=== PATIENT | male | born 1965 | race Caucasian/White ===

== ENCOUNTER → 2019-06-12 14:53 | Outpatient (CLI) | payer BC, SELFPAY ==
--- NOTE | 2019-06-12 14:58 | XR_ITS ---
PROCEDURE: XR CHEST 2V CLINICAL HISTORY: ACUTE BRONCHITIS COMPARISON: No exams were available for comparison FINDINGS: The cardiomediastinal silhouette and pulmonary vascularity are within normal limits. The lungs are clear without infiltrates, suspicious nodules, or pleural effusions. Postsurgical changes left glenoid region IMPRESSION: No acute findings. Dictated by: Robert Boyd MD 06/12/2019 15:39 Electronically signed by Robert Boyd MD in [place] 06/12/2019 15:39
== END ==
PROVIDERS: PCP Internal Medicine Adolescent Medicine; Visit Provider Internal Medicine Adolescent Medicine
DX: J20.9 Acute bronchitis, unspecified (principal)
CPT/HCPCS: 71046

== ENCOUNTER → 2019-10-04 17:42 | Outpatient (CLI) | payer BC, SELFPAY ==
[2019-10-06 14:04] LABS: Covid-19 Nasal PCR Sendout Lex NOT DETECTED
== END ==
PROVIDERS: Visit Provider Internal Medicine Adolescent Medicine
DX: Z20.828 Contact with and (suspected) exposure to other viral communicable diseases (principal)
CPT/HCPCS: U0004

== ENCOUNTER → 2020-09-24 11:08 | Outpatient (CLI) | payer BC, SELFPAY ==
--- NOTE | 2020-09-24 11:29 | XR_ITS ---
PROCEDURE: XR CHEST 2V CLINICAL HISTORY: PRE-SYNCOPE, OTHER FATIGUE COMPARISON: DX XR CHEST 2V from 06/12/2019 FINDINGS: The cardiomediastinal silhouette and pulmonary vascularity are within normal limits. The lungs are clear without infiltrates, suspicious nodules, or pleural effusions. Postsurgical changes left shoulder. Two metallic clips are present in the glenoid region IMPRESSION: No acute findings. Dictated by: Robert Boyd MD 09/24/2020 12:02 Robert Boyd MD in [place] 09/24/2020 12:02
[2020-09-24 11:57] LABS: Basophils % 0.7 % (0.1-2.0); Eosinophils # 0.3 K/mm3 (0.0-0.4); Eosinophils % 4.6 % (0.1-12.0); Hematocrit 48.8 % (42.0-52.0); Hemoglobin 16.7 g/dL (14.1-18.0); Lymphocytes # 1.7 K/mm3 (0.7-4.5); Lymphocytes % 27.2 % (10-50); Mean Corpuscular HGB Conc 34.2 g/dL (31.8-35.4); Mean Corpuscular Hemoglobin 32.7 pg (27.0-31.2); Mean Corpuscular Volume 95.4 fl (80-94); Mean Platelet Volume 6.6 fl (7.4-10.4); Monocytes # 0.4 K/mm3 (0.1-1.0); Monocytes % 5.9 % (1.7-9.3); Neutrophils # 3.7 K/mm3 (1.8-7.8); Neutrophils % 61.5 % (37.0-80.0); Platelet Count 276 K/mm3 (142-424); Red Blood Count 5.11 M/mm3 (4.60-6.20); Red Cell Distribution Width 13.5 % (11.5-17.5); White Blood Count 6.1 K/mm3 (4.8-10.8)
[2020-09-24 12:28] LABS: Chloride 102 mmol/L (98-107)
[2020-09-24 12:29] LABS: Potassium 5.5 mmoL/L (3.5-5.1); Sodium 141 mmol/L (136-145)
[2020-09-24 12:31] LABS: Alanine Aminotransferase 32 U/L (12-78); Alkaline Phosphatase 110 U/L (38-126); Anion Gap 15.5 mEq/L (5-15); Aspartate Amino Transferase 36 U/L (17-59); Bilirubin,Total 1.1 mg/dl (0.2-1.3); Blood Urea Nitrogen 19 mg/dl (9-20); Carbon Dioxide 29 mmol/L (22.0-30.0); Cholesterol 264 mg/dl (140-200); Estimated Glomerular Filt Rate 52 ml/min (>60); GFR (African American) 63 ML/MIN (>60); Triglycerides 299 mg/dl (30-150); VLDL Cholesterol 60 mg/dL (0-40)
[2020-09-24 12:32] LABS: Albumin/Globulin Ratio 1.7 (1.1-1.8); Calcium 10.1 mg/dl (8.4-10.2); Chol/HDL Ratio 6.1 (1-3.5); Glucose 94 mg/dl (74-100); HDL Cholesterol 43 mg/dl (40-60); Magnesium 2.2 mg/dl (1.6-2.3)
[2020-09-24 12:43] LABS: Direct LDL Cholesterol 163.91 mg/dL (100-129)
[2020-09-24 12:44] LABS: Hemoglobin A1C 5.2 % (4.0-6.0)
[2020-09-24 12:46] LABS: 25-OH Vitamin D, Total 35.5 ng/mL (30-100)
[2020-09-24 13:24] LABS: Vitamin B12 246 pg/mL (239-931)
[2020-09-24 21:13] LABS: Free Thyroxine Index 1.9 ug/dL (5.93-13.13); T4 (Thyroxine) 6.5 ug/dl (5.53-11.0); Triiodothryronine (T3) Uptake 29 % (23.5-40.5)
== END ==
PROVIDERS: Visit Provider Internal Medicine Adolescent Medicine
DX: R55 Syncope and collapse (principal); R53.81 Other malaise; R53.83 Other fatigue
CPT/HCPCS: 36415; 71046; 80053; 80061; 82306; 82607; 83036; 83735; 84436; 84443; 84479; 85025

== ENCOUNTER → 2020-12-25 15:57 | Outpatient (CLI) | payer BC, SELFPAY ==
--- NOTE | 2020-12-25 16:00 | XR_ITS ---
PROCEDURE: XR KNEE RT 3V CLINICAL INDICATION: KNEE PAIN, RT ANTERIOR COMPARISON: No exams were available for comparison FINDINGS: No fracture or dislocation. No lytic or blastic change. There is normal mineralization. Moderate to severe osteoarthritic changes are present with decrease in joint space involving all 3 compartments and osteophyte formation. Osteosclerosis is noted along the lateral compartment. There is mild concave deformity of the lateral tibial plateau. There are no previous exams available for comparison. A well-circumscribed calcific density is present superior to the patella and may be due to a loose body in the suprapatellar recess. Other findings:Possible loose body in the popliteal region at 7 mm IMPRESSION: Moderate to severe osteoarthritic changes of all 3 compartments with possible loose body in the suprapatellar recess. There may also be a loose body in the popliteal region at 7 mm. There is mild concavity with osteosclerosis of the lateral tibial plateau Dictated by: Robert Boyd MD 12/25/2020 16:19 Robert Boyd MD in [place] 12/25/2020 16:19
== END ==
PROVIDERS: PCP Internal Medicine Adolescent Medicine; Visit Provider Internal Medicine Adolescent Medicine
DX: M25.561 Pain in right knee (principal)
CPT/HCPCS: 73562

== ENCOUNTER → 2021-01-06 09:23 | Outpatient (CLI) | payer BC, SELFPAY ==
[2021-01-06 09:42] LABS: Basophils # 0.1 K/mm3 (0-0.2); Basophils % 0.8 % (0.1-2.0); Eosinophils # 0.2 K/mm3 (0.0-0.4); Eosinophils % 2.8 % (0.1-12.0); Hematocrit 47.1 % (42.0-52.0); Hemoglobin 15.6 g/dL (14.1-18.0); Lymphocytes # 1.7 K/mm3 (0.7-4.5); Lymphocytes % 21.6 % (10-50); Mean Corpuscular HGB Conc 33.1 g/dL (31.8-35.4); Mean Corpuscular Hemoglobin 33.1 pg (27.0-31.2); Mean Platelet Volume 6.7 fl (7.4-10.4); Monocytes # 0.4 K/mm3 (0.1-1.0); Monocytes % 5.1 % (1.7-9.3); Neutrophils # 5.3 K/mm3 (1.8-7.8); Neutrophils % 69.7 % (37.0-80.0); Platelet Count 325 K/mm3 (142-424); Red Blood Count 4.71 M/mm3 (4.60-6.20); Red Cell Distribution Width 12.2 % (11.5-17.5); White Blood Count 7.7 K/mm3 (4.8-10.8)
[2021-01-06 09:56] LABS: Chloride 105 mmol/L (98-107); Potassium 4.8 mmoL/L (3.5-5.1); Sodium 143 mmol/L (136-145)
[2021-01-06 09:59] LABS: Alanine Aminotransferase 35 U/L (12-78); Albumin Level 4.3 g/dl (3.5-5.0); Albumin/Globulin Ratio 1.5 (1.1-1.8); Alkaline Phosphatase 113 U/L (38-126); Anion Gap 13.8 mEq/L (5-15); Aspartate Amino Transferase 27 U/L (17-59); Bilirubin,Total 0.6 mg/dl (0.2-1.3); Blood Urea Nitrogen 16 mg/dl (9-20); Calcium 9.6 mg/dl (8.4-10.2); Carbon Dioxide 29 mmol/L (22.0-30.0); Estimated Glomerular Filt Rate 69 ml/min (>60); GFR (African American) 84 ML/MIN (>60); Globulin 2.9 g/dL (1.3-3.2); Glucose 101 mg/dl (74-100); Total Protein,Serum 7.2 g/dl (6.3-8.2)
[2021-01-06 10:05] LABS: C-Reactive Protein 32.9 mg/L (0-4)
[2021-01-06 10:44] LABS: Erythrocyte Sedimentation Rate 27 mm/hr (0-20)
--- NOTE | 2021-01-06 11:00 | CA_ITS ---
APPROVED REPORT Right Lower Extremity Venous Study for DVT. Stripper Cutter Machine: PHILIPPE Indications Lower Extremity Edema: Right Osteoarthritis, Localized redness with edema Vein Imaging CFV (R): compressive, spontaneous, phasic, augmentation SFJ (R): compressive, spontaneous, phasic, augmentation FEM (R): compressive, spontaneous, phasic, augmentation POP (R): compressive, spontaneous, phasic, augmentation DFV (R): compressive, spontaneous, phasic, augmentation PTV (R): compressive, spontaneous, phasic, augmentation GSV (R): compressive, spontaneous, phasic, augmentation SSV (R): compressive, spontaneous, phasic, augmentation Peroneals (R):compressive, spontaneous, phasic, augmentation GAS (R): compressive, spontaneous, phasic, augmentation Findings Color flow duplex demonstrates no evidence of DVT of the following right lower extremity Veins:Common Femoral Vein, Femoral Vein, Popliteal Vein, Posterior Tibial Veins, Peroneal Veins, Deep Femoral Vein. Negative for DVT. Conclusion Negative for DVT. Critical Notification Critical Value: No Physician Notified Date: 01/06/2021 Time: 11:20 Physician Name: Andrey Electronically signed by : Robert Boyd MD 01/06/2021 15:24:19
== END ==
PROVIDERS: PCP Internal Medicine Adolescent Medicine; Visit Provider Internal Medicine Adolescent Medicine
DX: R60.0 Localized edema (principal); L03.115 Cellulitis of right lower limb
CPT/HCPCS: 36415; 80053; 85025; 85651; 86140; 93971

== ENCOUNTER 2021-11-25 14:30 | Outpatient (RCR) | payer BC, SELFPAY | END 2021-11-25 14:35 | disposition home or self-care (01) | LOC: PT 14:30 | PROVIDERS: PCP Internal Medicine Adolescent Medicine; Visit Provider Orthopaedic Surgery Adult Reconstructive Orthopaedic Surgery | DX: M17.0 Bilateral primary osteoarthritis of knee (principal) | CPT/HCPCS: 97010; 97014; 97016; 97110; 97140; 97163; 97164; G0283 ==

== ENCOUNTER → 2021-11-29 11:59 | Outpatient (CLI) | payer BC, SELFPAY ==
[2021-11-29 12:51] LABS: Basophils # 0.1 K/mm3 (0-0.2); Basophils % 1.6 % (0.1-2.0); Eosinophils # 0.3 K/mm3 (0.0-0.4); Eosinophils % 4.5 % (0.1-12.0); Hemoglobin 14.4 g/dL (14.1-18.0); Lymphocytes # 1.2 K/mm3 (0.7-4.5); Lymphocytes % 21.7 % (10-50); Mean Corpuscular HGB Conc 32.1 g/dL (31.8-35.4); Mean Corpuscular Hemoglobin 30.3 pg (27.0-31.2); Mean Corpuscular Volume 94.4 fl (80-94); Monocytes # 0.4 K/mm3 (0.1-1.0); Monocytes % 7.7 % (1.7-9.3); Neutrophils # 3.6 K/mm3 (1.8-7.8); Neutrophils % 64.5 % (37.0-80.0); Platelet Count 314 K/mm3 (142-424); Red Blood Count 4.77 M/mm3 (4.60-6.20); Red Cell Distribution Width 15.6 % (11.5-17.5); White Blood Count 5.5 K/mm3 (4.8-10.8)
[2021-11-29 13:14] LABS: Anion Gap 11.6 mEq/L (5-15); Blood Urea Nitrogen 17 mg/dl (9-20); Calcium 9.5 mg/dl (8.4-10.2); Carbon Dioxide 30 mmol/L (22.0-30.0); Chloride 105 mmol/L (98-107); Estimated Glomerular Filt Rate 62 ml/min (>60); GFR (African American) 76 ML/MIN (>60); Glucose 91 mg/dl (74-100); Potassium 4.6 mmoL/L (3.5-5.1); Sodium 142 mmol/L (136-145)
[2021-11-29 14:03] LABS: Vitamin B12 314 pg/mL (239-931)
== END ==
PROVIDERS: PCP Internal Medicine Adolescent Medicine; Visit Provider Internal Medicine Adolescent Medicine
DX: G62.89 Other specified polyneuropathies (principal); R79.89 Other specified abnormal findings of blood chemistry
CPT/HCPCS: 36415; 80048; 82607; 85025